=== PATIENT | male | born 1960 | race Caucasian/White ===

== ENCOUNTER 2022-05-27 10:37 | Outpatient (CLI) | payer BC, SELFPAY ==
--- NOTE | 2022-05-27 11:00 | CRLHL7_ITS ---
For Patients: As a result of the Cures Act, medical imaging exams and procedure reports are released immediately into your electronic medical record. You may view this report before your referring provider. If you have questions, please contact your health care provider. CLINICAL HISTORY: Cervical Stenosis TECHNIQUE: The carotid circulations and the vertebral arteries in the neck were examined with paul-scale ultrasound, color-flow and Doppler spectral analysis. Degrees of stenosis were determined using SRU 2002 Consensus Panel Criteria. FINDINGS: Sonographic images demonstrate bilateral atherosclerotic plaque formation without suspicious soft tissue mass. There was antegrade blood flow demonstrated within the vertebral arteries and the subclavian arteries demonstrated a normal triphasic waveform. The spectral Doppler tracings of the common carotid, internal and external carotid arteries demonstrate left-sided abnormal turbulence and spectral broadening. There was significant elevation of peak systolic blood flow which would indicate a hemodynamically-significant stenosis by SRU criteria within the proximal and mid left ICA measuring 257 and 178 cm/second, respectively. The ICA/CCA peak systolic velocity ratio measures 1.2 on the right and 2.1 on the left. IMPRESSION: 50-69 percent stenosis of the mid left ICA and greater than 70 percent stenosis of the proximal left ICA. Less than 50 percent stenosis of the right ICA. Dictated by David Lal MD @ 05/28/2022 10:26:43 AM (Electronically Signed)
== END 2022-05-27 10:38 | disposition home or self-care (01) ==
PROVIDERS: PCP Family Medicine; Visit Provider Orthopaedic Surgery
DX: M48.02 Spinal stenosis, cervical region (principal); I65.22 Occlusion and stenosis of left carotid artery
CPT/HCPCS: 93880